=== PATIENT | male | born 1965 | race African-American/Black ===

== ENCOUNTER 2023-06-27 08:23 | Outpatient (REF) | payer OTHER, SELFPAY ==
--- NOTE | ~2023-06-27 | XR_ITS ---
EXAMINATION: XR SHOULDER, RIGHT CLINICAL INFORMATION: Pain in right COMPARISON: None available. TECHNIQUE: 2 views of right shoulder of the right shoulder. FINDINGS: The bones and soft tissues are normal. No fracture. Glenohumeral and acromioclavicular alignment is anatomic with normal joint space. No abnormal soft tissue calcifications. XR/XR shoulder RT min 2V IMPRESSION: Normal right shoulder.
== END 2023-06-27 08:24 | disposition home or self-care (01) ==
LOC: HO.HOSX 08:23
PROVIDERS: Visit Provider Orthopaedic Surgery
DX: M25.511 Pain in right shoulder (principal)
CPT/HCPCS: 73030; 99202

== ENCOUNTER 2023-06-27 11:00 | Outpatient (AMB) | payer OTHER, SELFPAY ==
--- NOTE | 2023-06-27 11:02 | MHC.OFFVIS ---
Intake Vital Signs 06/27/23 11:12 Height 5 ft 11 in Weight 230 lb BMI 32.1 Handedness Right Intake Visit Reasons: Rn Psych- Right RTC injury DOI 06/14/23 Intake Note: Manuel is a 57 year old male who presents today as a new patient for a evaluation of his right shoulder pain and weakness. The patient states that several weeks ago he slipped on ice while working and fell directly onto his right arm. Since that time he has had the inability to lift his right hand above shoulder height. He has been going to physical therapy which has given him minimal relief. He has also tried Tylenol and anti-inflammatory medicines which gave him only mild relief. He denies any weakness or pain in his shoulder prior to that injury. 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 Physical Exam Vital Signs: BMI result Body Mass Index 32.1 Const Other: Well-nourished well-developed very friendly male awake alert and oriented x3 in no acute distress Extrem Other: Bilateral upper extremity examination shows good capillary refill, no skin lesions noted, normal sensation light touch Right shoulder examination shows limited active range of motion but almost full passive range of motion when compared to his left shoulder, 3/5 strength with supraspinatus testing, positive impingement signs, tenderness over his acromioclavicular joint, no instability Results Reviewed Results Reviewed: X-rays of the patient's right shoulder show severe acromioclavicular joint narrowing, a type 3 acromion, no acute bony abnormalities Assessment & Plan Assessment & Plan (1) Right shoulder pain: Code(s): M25.511 - Pain in right shoulder Plan Mr. Huffman presents with progressively worsening right shoulder pain and weakness most likely due to a full-thickness rotator cuff tear. Thus, I will send the patient for an MRI of his right shoulder for further evaluation. He will continue with his range of motion exercises in the meantime to prevent stiffness. I will see him back after the MRI is completed to discuss the findings and treatment options. The patient will follow-up as instructed. I spent 22 minutes in reviewing the patient's records and imaging studies, seeing the patient and documenting in the medical record. Orders: Orders MR shoulder RT wo con Today M25.511 - Pain in right shoulder XR shoulder RT min 2V Today M25.511 - Pain in right shoulder Coding Level of Care Code New Pt Level 2 (80367) Diagnoses Right shoulder pain M25.511
[2023-06-27 11:12] VITALS: BMI 32.1
== END 2023-06-27 11:27 | disposition home or self-care (01) ==
PROVIDERS: Visit Provider Orthopaedic Surgery
DX: M25.511 Pain in right shoulder (principal)
CPT/HCPCS: 99202

== ENCOUNTER 2023-07-25 13:52 | Outpatient (AMB) | payer OTHER, SELFPAY ==
--- NOTE | 2023-07-25 13:54 | MHC.OFFVIS ---
Intake Vital Signs 07/25/23 13:55 Height 5 ft 11 in Weight 230 lb BMI 32.1 Intake Visit Reasons: OV- MRI review, RT RTC injury 06/14 Intake Note: Manuel is a 57 year old male who presents today for a MRI review of his right shoulder pain. Manuel is a 57 year old male who presents today with right shoulder pain and weakness. The patient states that several weeks ago he slipped on ice while working and fell directly onto his right arm. Since that time he has had the inability to lift his right hand above shoulder height. He has been going to physical therapy which has given him minimal relief. He has also tried Tylenol and anti-inflammatory medicines which gave him only mild relief. He denies any weakness or pain in his shoulder prior to that injury. 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 Physical Exam Vital Signs: BMI result Body Mass Index 32.1 Const Other: Well-nourished well-developed very friendly male awake alert and oriented x3 in no acute distress Extrem Other: Bilateral upper extremity examination shows good capillary refill, no skin lesions noted, normal sensation light touch Right shoulder examination shows decreased range of motion when compared to his left shoulder, 4/5 strength with supraspinatus testing, positive impingement signs, tenderness over his acromioclavicular joint, no instability Results Reviewed Results Reviewed: MRI of the patient's right shoulder show severe acromioclavicular joint narrowing, a type 2 acromion, a full-thickness tear of the supraspinatus tendon Assessment & Plan Assessment & Plan (1) Right shoulder pain: Code(s): M25.511 - Pain in right shoulder Plan Mr. Huffman presents with right shoulder pain and weakness due to impingement syndrome, acromioclavicular joint arthritis and a full-thickness rotator cuff tear. I had a lengthy discussion with the patient regarding the treatment options. At this point he has failed continued non operative treatments. The risks and benefits of right shoulder surgery were discussed at length with the patient. The patient wishes to proceed with surgery early next year. He will contact my office to pick a surgery date. Surgery will most likely involve right shoulder diagnostic arthroscopy with distal clavicle excision, acromioplasty and rotator cuff repair. I will see the patient back 1 week prior to his surgery to answer any final questions that he might have. He will continue with his range of motion exercises in the meantime to prevent stiffness. Feel free to call me at any time should questions regarding his orthopedic management arise. I spent 22 minutes in reviewing the patient's records and imaging studies, seeing the patient and documenting in the medical record. Coding Level of Care Code Est Pt Level 2 (78416) Diagnoses Right shoulder pain M25.511
[2023-07-25 13:55] VITALS: BMI 32.1
== END 2023-07-25 14:14 | disposition home or self-care (01) ==
PROVIDERS: PCP Physician Assistant; Visit Provider Orthopaedic Surgery
DX: M25.511 Pain in right shoulder (principal)
CPT/HCPCS: 99212

== ENCOUNTER → 2023-07-25 13:52 | Outpatient (BNVA) | payer OTHER, SELFPAY | PROVIDERS: PCP Physician Assistant; Visit Provider Orthopaedic Surgery | DX: M75.41 Impingement syndrome of right shoulder (principal); M19.011 Primary osteoarthritis, right shoulder | CPT/HCPCS: 99212 ==

== ENCOUNTER 2023-08-31 07:39 | Day surgery (SDC) | payer OTHER, SELFPAY ==
[2023-08-29 16:11] VITALS: BMI 32.1
[2023-08-29 16:33] VITALS: BMI 32.1
--- NOTE | 2023-08-30 09:10 | HO.ANESPROP2 ---
Documented by User: Lorin Pickett NP 08/30/23 09:10 HPI - Anesthesia Eval Consult details Narrative: 57yo M for Right Shoulder Arthroscopy distal clavicle Excision, acromioplasty,rotator cuff repair PMFSH Active Problems Active Problems: All Active Problems (Updated 08/29/23 @ 16:32 by Char Crowley RN) Right shoulder pain (Acute) Past Medical History Medical History Snores GERD (gastroesophageal reflux disease) Surgical History Surgical History Hx of appendectomy Hx of colonoscopy Social History Social History Household Members: Significant Other Housing: Apartment Are you a primary direct care supervisor to a significant other at home: No Do you presently have visiting nurse or other home services: No Alcohol intake: current Patient Tobacco Use Status: Current someday Tobacco user Tobacco use type: Cigar Use of substances other than those prescribed or required for medical reasons: No Have you been hit, kicked, punched, or otherwise hurt by someone within the past year? 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 Meds Allergies Allergy/AdvReac Type Severity Reaction Status Date / Time No Known Allergies Allergy Verified 08/31/23 07:49 [No Known Allergies*] Active Medications: Current Medications Cefazolin Sodium/Dextrose (Ancef) 2 gm in 50 mls @ 100 mls/hr IV PREOP ONE Stop: 08/31/23 05:34 Home Medications Medication Instructions Recorded Confirmed Last Taken Type omeprazole 20 mg capsule,delayed 20 mg PO DAILY 08/29/23 08/29/23 Unknown History release Exam Height,Weight and Vital Signs: Height 5 ft 11 in Weight 104.326 kg Assessment and Plan Assessment Anesthesia Assessment: Chart Reviewed Documented by User: Marta Butcher MD 08/31/23 08:20 [facility] Past Medical History Medical History Snores GERD (gastroesophageal reflux disease) Family History Family history of problems with anesthesia: No Surgical History Surgical History Hx of appendectomy Hx of colonoscopy History of Problems with Anesthesia: No Social History Social History Household Members: Significant Other Housing: Apartment Are you a primary direct care supervisor to a significant other at home: No Do you presently have visiting nurse or other home services: No Alcohol intake: current Patient Tobacco Use Status: Current someday Tobacco user Tobacco use type: Cigar Use of substances other than those prescribed or required for medical reasons: No Have you been hit, kicked, punched, or otherwise hurt by someone within the past year? 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 Meds Allergies Allergy/AdvReac Type Severity Reaction Status Date / Time No Known Allergies Allergy Verified 08/31/23 07:49 [No Known Allergies*] Home Medications Medication Instructions Recorded Confirmed Last Taken Type omeprazole 20 mg capsule,delayed 20 mg PO DAILY 08/29/23 08/29/23 Unknown History release Exam Airway Mallampati Class: III TM Dist: >3cm Neck ROM: Limited Heart: rrr Lungs: cta Assessment and Plan Assessment Anesthesia Assessment: Anesthesia Plan Discussed Final Anesthetic Review Family History of Problems with Anesthesia: No History of Problems with Anesthesia: No NPO: Yes ASA Class: II (obese, likely sleep apnea , difficult aitway , thick neck) Final Preanesthetic Review: No Changes in Pt Med Stat, Meds/Allgs Chart Reviewed, Consent Obtained/Reviewed and Anes Risks/Benef Reviewed Patient Risk: Intermediate Procedure Risk: Intermediate Anesthetic Plan Anesthetic Plan: GA and Regional Block Disposition: Standard PACU
[2023-08-31] VITALS (10 sets, daily range): BP systolic 123–153; BP diastolic 72–99; PULSE 56–77; RESP 17–20; TEMP 36.1–36.6; O2SAT 88–100; BMI 34.7
[2023-08-31] MEDS: Lactated Ringers 1,000 ML 100 ML IVCONT (07:54)
--- NOTE | 2023-08-31 11:23 | PM.OP ---
Brief Operative Note Date of Service: 08/31/23 Pre-op diagnosis: Right shoulder impingement syndrome, right shoulder acromioclavicular joint arthritis, right shoulder rotator cuff tear Post-op diagnosis: same Procedure: Right shoulder diagnostic arthroscopy with right shoulder arthroscopic distal clavicle excision, right shoulder arthroscopic acromioplasty, right shoulder mini-open rotator cuff repair Implants: One suture anchor (Hua and Nephew Twinfix anchor with #2 Ultrabraid suture) Surgeon: Rasheed Chadwick MD Anesthesia: GETA and regional Was an Secondary School Teacher Librarian used for this Procedure?: No Estimated blood loss (mL): 10 Pathology: none sent Condition: stable Disposition: PACU
--- NOTE | 2023-08-31 11:27 | P.OP_ITS ---
Operative Note Operative Note Date of Service: 08/31/23 Narrative: After the patient was identified as Manuel Huffman and his right shoulder was initialed by myself the patient was brought to the holding area where a right shoulder interscalene regional block was performed by the anesthesiologist in routine fashion. The patient was then brought to the operating room where general anesthesia was induced by the anesthesiologist in routine fashion. The patient was given 2 g of IV Ancef preoperatively for infection prophylaxis. Examination under anesthesia of the patient's right shoulder showed full passive range of motion of the patient's right shoulder when compared to the left. The patient was gently positioned in the beach chair position with all bony prominences well padded. The patient's right shoulder region and upper extremity were prepped and draped in sterile fashion. A formal time-out was completed. A #11 scalpel blade was used to make a posterior portal 2 cm inferior and 1 cm medial to the posterolateral corner of the acromion. Blunt trocar technique was used to enter the glenohumeral joint in routine fashion. An anterior portal was made just lateral to the coracoid process after proper positioning was confirmed using a spinal needle. Diagnostic arthroscopy showed minimal degenerative changes of the glenoid and humeral head articular surfaces. There was a full-thickness tear of the supraspinatus tendon. There was no evidence of injury to the biceps tendon or its insertion onto the glenoid. There was no inflammation of the anterior joint capsule. The arthroscope was then placed from the posterior portal into the subacromial space. A lateral portal was made 2 fingerbreadths lateral to the anterior lateral corner of the acromion. The ArthroCare Wand was used to ablate soft tissues along the undersurface of the acromion as well as to excise the coracoacromial ligament. There was a sharp spur along the undersurface of the acromion which was removed using the hooded bur. The arthroscope was then placed into the lateral portal and the acromioplasty was completed with the bur in the posterior portal using the posterior aspect of the acromion as a cutting block. The ArthroCare Wand was then brought in through the anterior portal and was used to ablate soft tissues along the acromioclavicular joint and distal clavicle. The posterior and superior ligamentous structures were left intact. A distal clavicle excision of 8 mm was performed using the hooded bur. Any remaining bursal tissue was removed using the arthroscopic shaver. The subacromial space was irrigated and then drained. All arthroscopic instruments were removed. Sterile gloves were changed and the shoulder was once again prepped with Betadine. A #15 scalpel blade was used to extend the lateral portal to the lateral edge of the acromion. The subacromial tissues were dissected using electrocautery down to the superficial deltoid fascia. The trocar split in the anterior raphe of the deltoid was then extended to the lateral edge of the acromion using e lectrocautery and curved Villalobos scissors. Any remaining bursal tissue was removed using curved Villalobos scissors. Subacromial and subdeltoid adhesions were bluntly dissected. The undersurface of the acromion was palpated and it was smooth. A #2 Ethibond tag suture was placed into the supraspinatus tendon. The tendon was easily mobilized to its insertion point on the glenoid. The wound was irrigated with copious amounts of normal saline solution. One suture anchor was placed into the greater tuberosity in routine fashion. The rotator cuff repair was then performed using horizontal mattress sutures under minimal tension with the patient's elbow at their side. Following the repair the shoulder was taken through a full range of motion. The repair was stable. The wound was irrigated with copious amounts of normal saline solution. The superficial and deep deltoid fascia were closed with #1 Vicryl [id number] interrupted suture. The wound was once again irrigated. The subcutaneous tissues were closed with 2-0 Vicryl interrupted suture. The skin was closed with 3-0 Prolene subcuticular suture and Steri-Strips. The anterior and posterior portals were closed with 3-0 nylon interrupted suture. Dry sterile dressing was placed over all incisions. The patient's right upper extremity was placed into a sling. The patient was awoken and extubated in the operating room. The patient was transferred to the recovery room in stable condition.
[2023-08-31] MEDS: cefTRIAXone sodium 1 GM in 0.9 % Sodium Chloride 50 ML IV (11:28)
== END 2023-08-31 13:30 | disposition home or self-care (01) ==
PROVIDERS: PCP Physician Assistant; Visit Provider Orthopaedic Surgery
PROC: (CPT 29805; principal; 2023-08-31 09:00)
DX: M75.101 Unspecified rotator cuff tear or rupture of right shoulder, not specified as traumatic (principal); M75.41 Impingement syndrome of right shoulder; M19.011 Primary osteoarthritis, right shoulder; K21.9 Gastro-esophageal reflux disease without esophagitis; F17.210 Nicotine dependence, cigarettes, uncomplicated
CPT/HCPCS: 23412; 29824; 29826; C1713; J0131; J0171; J0665; J0690; J0696; J2250; J2704; J2795; J3010

== ENCOUNTER → 2023-08-31 07:39 | Outpatient (BNV) | payer OTHER, SELFPAY | PROVIDERS: PCP Physician Assistant; Visit Provider Orthopaedic Surgery | DX: S46.011A Strain of muscle(s) and tendon(s) of the rotator cuff of right shoulder, initial encounter (principal); M75.41 Impingement syndrome of right shoulder; M19.011 Primary osteoarthritis, right shoulder | CPT/HCPCS: 23412; 29824; 29826 ==

== ENCOUNTER 2023-09-13 13:56 | Outpatient (AMB) | payer OTHER, SELFPAY ==
--- NOTE | 2023-09-13 13:56 | A.OFFVIS_ITS ---
Intake Intake Visit Reasons: PO-Rt Shld RTC Repair 08/31/23 Intake Note: Manuel arita 58 yr old male presents today for his P/O visit for his right shoulder RTC repair from 08/30/23. States he has very little pain and has D/C pain medication. States he is dong well over all. Allergies No Known Allergies [No Known Allergies*] Allergy (Verified 09/13/23 14:02) HPI PO-Rt Shld RTC Repair 08/31/23 HPI Details 58-year-old male who [facility] right RTC repair, 08/31/[address] Chadwick. He states he has minimal pain in his shoulder which is aggravated with overhead reaching and laying on the sides. He has discontinued taking his pain medication. He is doing well overall and has no other concerns today. 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 Incision clean, dry and intact. No erythema or drainage. NVI. Results Reviewed Results Reviewed: Brief Operative Note Date of Service: 08/31/23 Pre-op diagnosis: Right shoulder impingement syndrome, right shoulder acromioclavicular joint arthritis, right shoulder rotator cuff tear Post-op diagnosis: same Procedure: Right shoulder diagnostic arthroscopy with right shoulder arthroscopic distal clavicle excision, right shoulder arthroscopic acromioplasty, right shoulder mini-open rotator cuff repair Implants: One suture anchor (Hua and Nephew Twinfix anchor with #2 Ultrabraid suture) Surgeon: Rasheed A Ruark, MD Assessment & Plan Assessment & Plan (1) Status post right rotator cuff repair: Code(s): Z98.890 - Other specified postprocedural states Plan Sutures removed today, steri strips applied. I discussed importance of the sling with reaching and going out of house for safety. I also put in a referral for physical therapy to work on ROM and periscapular strengthening, no RTC strengthening for the next 6 weeks. He will remain out of work till his next follow-up in [address] Chadwick, sooner if needed. Orders: Orders PT Evaluation and Treatment 09/13/23 Z98.890 - Other specified postprocedural states Patient Instructions: Scribed for Bobby Chavez PA-C, by Joo Dixon medical education coordinator, on 09/13/2023 at 2:00 PM EST. I, Bobby Chavez PA-C, have personally reviewed and agree with the information entered by the scribe. Coding Level of Care Code Global (70622) Diagnoses Status post right rotator cuff repair Z98.890
== END 2023-09-13 14:18 | disposition home or self-care (01) ==
PROVIDERS: PCP Physician Assistant; Visit Provider Physician Assistant
DX: Z98.890 Other specified postprocedural states (principal)
CPT/HCPCS: 99024

== ENCOUNTER → 2023-09-13 13:56 | Outpatient (BNVA) | payer OTHER, SELFPAY | PROVIDERS: PCP Physician Assistant; Visit Provider Physician Assistant | DX: Z47.89 Encounter for other orthopedic aftercare (principal) | CPT/HCPCS: 99212 ==

== ENCOUNTER 2023-10-11 10:58 | Outpatient (AMB) | payer OTHER, SELFPAY ==
--- NOTE | 2023-10-11 11:02 | A.OFFVIS_ITS ---
Intake Vital Signs 10/11/23 11:07 Height 5 ft 10 in Weight 230 lb BMI 33.0 Intake Visit Reasons: PO-Rt Shld RTC Repair 08/31/23 DR Estrella Note: Manuel Curtis is a 58 year old Right hand dominate male who presents for his post operative appointment s/p Right shoulder RTC repair on 08/31/2023. The patient continues to go to physical therapy at [facility] [place]. He reports continued mild to moderate discomfort in his shoulder. He has been doing passive range of motion exercises only. He denies any fevers or chills. He is no longer taking narcotics for his discomfort. Allergies No Known Allergies [No Known Allergies*] Allergy (Verified 10/11/23 11:06) Medication List - Last Reconciled 10/11/23 by Rasheed Chadwick MD omeprazole 20 mg PO DAILY PFSH Medical History Snores GERD (gastroesophageal reflux disease) Surgical History (Updated 10/11/23 @ 11:11 by Bridgette Saldaña CMA) Hx of shoulder surgery (~08/31/23) Hx of appendectomy Hx of colonoscopy Social History Household Members: Significant Other Housing: Apartment Are you a primary manager long term care to a significant other at home: No Do you presently have visiting nurse or other home services: No Alcohol intake: current Patient Tobacco Use Status: Current someday Tobacco user Tobacco use type: Cigar Current occupational status: employed 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 Huffman continues to do well after undergoing right shoulder rotator cuff repair surgery on 08/31/2023. He will continue going to formal physical therapy for now. He will hold off on active range of motion exercises until he is 8 weeks out from surgery. The do's and don'ts of lifting were discussed at length with the patient. He will contact me prior to his follow-up appointment in 6 weeks should any questions or concerns arise. Feel free to call me at any time should questions regarding his orthopedic management arise. Orders: Orders PT Evaluation and Treatment Today Z98.890 - Other specified postprocedural states Coding Level of Care Code Global (98629) Diagnoses Status post right rotator cuff repair Z98.890
[2023-10-11 11:07] VITALS: BMI 33.0
== END 2023-10-11 11:30 | disposition home or self-care (01) ==
LOC: HO.HOS 11:00
PROVIDERS: PCP Physician Assistant; Visit Provider Orthopaedic Surgery
DX: Z98.890 Other specified postprocedural states (principal)
CPT/HCPCS: 99024

== ENCOUNTER → 2023-10-11 10:58 | Outpatient (BNVA) | payer OTHER, SELFPAY | PROVIDERS: PCP Physician Assistant; Visit Provider Orthopaedic Surgery | DX: Z47.89 Encounter for other orthopedic aftercare (principal) | CPT/HCPCS: 99212 ==

== ENCOUNTER 2023-11-22 09:49 | Outpatient (AMB) | payer OTHER, SELFPAY ==
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
[2023-11-22 09:52] VITALS: BMI 33.0
== END 2023-11-22 10:15 | disposition home or self-care (01) ==
PROVIDERS: PCP Physician Assistant; Visit Provider Orthopaedic Surgery
DX: Z98.890 Other specified postprocedural states (principal)
CPT/HCPCS: 99024

== ENCOUNTER → 2023-11-22 09:49 | Outpatient (BNVA) | payer OTHER, SELFPAY | PROVIDERS: PCP Physician Assistant; Visit Provider Orthopaedic Surgery | DX: Z47.89 Encounter for other orthopedic aftercare (principal) | CPT/HCPCS: 99212 ==

== ENCOUNTER 2023-12-24 10:00 | Outpatient (RCR) | payer OTHER, SELFPAY ==
--- NOTE | 2023-09-19 14:13 | MHC.PT.EP ---
[facility] [place] [facility] [place] Office [place] Office [address] Erica Vergara [address] [phone] F: [phone] F: [phone] F: [phone] F: [phone] Physical Therapy Plan of Care Date of Evaluation: 09/19/23 Date of Surgery: 08/31/23 Diagnosis: This is a 58 yo male presenting to skilled PT with a script for R shoulder arthroscopic acromioplasty. Assessment: This is a 58 yo male presenting to skilled PT with a script for R shoulder arthroscopic acromioplasty. Patient slipped on ice at work on 06/13/23. Per ortho note patient is p/o right shoulder RTC repair from 08/31/23 (surgical note procedure included: Right shoulder diagnostic arthroscopy with right shoulder arthroscopic distal clavicle excision, right shoulder arthroscopic acromioplasty, right shoulder mini-open rotator cuff repair). Sutures were removed and steri strips were applied at his PO visit on 09/13/23, note states physical therapy to work on ROM and periscapular strengthening, no RTC strengthening for the next 6 weeks. He returns to ortho on . He reports no issues after the surgery however he was putting on his shirt this past Sunday and experienced increased pain (he has since called ortho to let them know this). Today he reports pain that is at the anterior shoulder and increases with movement. Pain is described as achy. Patient is here with a sling on, no abduction pillow (he was told to wear it as needed when he goes out). Assessment reveals pain that ranges from up to a 6/10 at the worst. Patient demos decreased R shoulder and cervical ROM, strength of R shoulder, TTP at incision, anterior and superior joint line UT and impaired posture with forward head and rounded shoulders that is expected s/p shoulder surgery. Based on functional limitations, impaired QOL and pain tolerance patient is a good candidate for skilled PT 2x/wk for 5wks. Rehab protocol was faxed to the referring surgeon for approval. Frequency and Duration: The patient will be seen 2x/wk for 5 wks Short Term Goals: (in 3 weeks) Demo I with HEP Per rehab protocol progress to full PROM (week 5) Demo proper scapular recruitment with appropriate shoulder strengthening exercises Understand and be compliant with rehab protocol, safety, sling use and precautions Boat Oar Maker Goals: (in 5 wks) Improve shoulder nonpainful AROM to almost near equal B Demo at least 1 grade improvement in MMT for shoulder Improve SPADI by at least 10 points Improve overall functional QOL by at least 75% Treatment Plan: Modalities to reduce pain, spasms and effusion. Manual therapy to restore motion and function. Therapeutic exercise to improve strength and flexibility. Neuromuscular re-education for posture and balance. Therapeutic activities to return to functional activities of daily living. Electronically signed by: Mitzi Siddiqui PT Please sign and return to therapist. Thank you for your referral.
--- NOTE | 2024-01-28 08:35 | MHC.PT.DC ---
[facility] [place] Office [place] Office [place] Office [address] Erica Vergara [address] [phone] F: [phone] F: [phone] F: [phone] F: [phone] Physical Therapy Discharge Report Diagnosis: This is a 58 yo male presenting to skilled PT with a script for R shoulder arthroscopic acromioplasty. Date of Surgery: 08/31/23 Date of Evaluation: 09/19/23 Date of Discharge: 01/28/24 Treatments to Date: 20 Cancellations to Date: 0 No Shows to Date: 0 Discharge Status: Achieved Goals Improved Function Independent with HEP Discharge Summary: 12/23: Patient has had 20 visits of PT, he has improved his SPADI to near normal, has returned to normal daily routines at home and improved his pain to no more than a 2/10 at the worst. He demos good ROM and strength and has met his PT goals. He is I in his HEP and returns to his surgeon in January with a POC to return to work then as well. He is motivated, progressing well and is no longer in need of skilled PT. Electronically signed by: Mitzi Siddiqui, PT Please sign and return to therapist. Thank you for your referral.
== END 2024-01-28 08:35 | disposition home or self-care (01) ==
LOC: HO.PTCHIC 10:00
PROVIDERS: PCP Physician Assistant; Visit Provider Physician Assistant
DX: Z98.890 Other specified postprocedural states (principal)
CPT/HCPCS: 97110; 97140; 97162; 97164

== ENCOUNTER 2024-01-22 09:16 | Outpatient (AMB) | payer OTHER, SELFPAY ==
--- NOTE | 2024-01-22 09:20 | MHC.OFFVIS ---
Vital Signs 01/22/24 09:21 Height 5 ft 10 in Weight 220 lb BMI 31.6 Handedness Right Intake Visit Reasons: OV-Rt Shld RTC Repair 08/31/23 DR-follow up Intake Note: Manuel Curtis a 58 year old male presents to the office today for a follow up Rt shoulder RTC repair done 08/31/23 . Patient expresses he is diong well and would like to return back to work Sunday01/28/24. He continues with his home stretching program. He denies any fevers or chills. He has not take any medicines for his discomfort. 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 Allergies No Known Allergies [No Known Allergies*] Allergy (Verified 01/22/24 09:22) Medication List - Last Reconciled 01/22/24 by Rasheed Chadwick MD ibuprofen 800 mg PO Q8H PRN omeprazole 20 mg PO DAILY PFSH Medical History Snores GERD (gastroesophageal reflux disease) Surgical History Hx of shoulder surgery (~08/31/23) Hx of appendectomy Hx of colonoscopy Social History Household Members: Significant Other Housing: Apartment Are you a primary care consultant to a significant other at home: No Do you presently have visiting nurse or other home services: No Alcohol intake: current Patient Tobacco Use Status: Current someday Tobacco user Tobacco use type: Cigar Current occupational status: employed 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 Physical Exam Vital Signs: BMI result Body Mass Index 31.6 Const Other: Well-nourished well-developed very friendly male awake alert and oriented x3 in no acute distress Extrem Other: Bilateral upper extremity examination shows good capillary refill, no skin lesions noted, normal sensation light touch Right shoulder examination shows that the surgical incisions are well healed, no erythema, full active range of motion when compared to his left shoulder, 5/5 strength with supraspinatus testing, no discomfort with resisted forward flexion, internal rotation or external rotation Assessment & Plan Assessment & Plan (1) Right shoulder pain: Code(s): M25.511 - Pain in right shoulder Category: Surgical Plan Mr. Huffman continues to do well after undergoing right shoulder rotator cuff repair surgery on 08/31/2023. He will continue with his home exercise program. The do's and don'ts of lifting were discussed at length with the patient. I have cleared him to return to work without restrictions next week. Will contact me prior to his follow-up appointment in 3 months should any questions or concerns arise. Feel free to call me at any time should questions regarding his orthopedic management arise. I spent 20 minutes in reviewing the patient's records and imaging studies, seeing the patient and documenting in the medical record. Coding Level of Care Code Est Pt Level 2 (68747) Diagnoses Right shoulder pain M25.511
[2024-01-22 09:21] VITALS: BMI 31.6
== END 2024-01-22 09:45 | disposition home or self-care (01) ==
PROVIDERS: PCP Physician Assistant; Visit Provider Orthopaedic Surgery
DX: M19.011 Primary osteoarthritis, right shoulder (principal); S46.011D Strain of muscle(s) and tendon(s) of the rotator cuff of right shoulder, subsequent encounter; M75.41 Impingement syndrome of right shoulder
CPT/HCPCS: 99213

== ENCOUNTER → 2024-01-22 09:16 | Outpatient (BNVA) | payer OTHER, SELFPAY | PROVIDERS: PCP Physician Assistant; Visit Provider Orthopaedic Surgery | DX: M25.511 Pain in right shoulder (principal); Z98.890 Other specified postprocedural states | CPT/HCPCS: 99212 ==